=== PATIENT | male | born 1945 | race Caucasian/White ===

== ENCOUNTER 2024-03-24 07:20 | Day surgery (SDC) | payer MEDICARE ==
[~2024-03-24] VITALS: Ht 167.6 cm; Wt 124.3 kg
[~2024-03-24 07:20] MED LIST: ATOR40TA75 PO; CALTTAB6 PO; CIDA500T2 PO; ENTR1TAB PO; FARX1TAB3 PO; FURO80TA2 PO; LR 1,000 ML IV SCH; METO1TAB87 PO; MULTTAB77 PO; OMEG10002 PO; POTA99CA2 PO; TAMS1CAP17 PO; TIMO0.5S20 OU; WARF4TAB52 PO; XALA0.007 OU
[2024-03-24] MEDS: ATROPINE SULFATE 1% OPHTH SOLN 2ML BTL OS SCH (08:14)
[2024-03-24] MEDS: TETRACAINE 0.5% OPHTH SOLN 4ML OS SCH (08:15)
[2024-03-24] MEDS: PHENYLEPHRINE 2.5% OPHTH SOL 2ML OS SCH (08:15)
[2024-03-24] MEDS: FLURBIPROFEN 0.03% OPHTH SOLN 2.5 ML OS SCH (08:15)
[2024-03-24] MEDS ORDERED: fentaNYL 100 MCG/2 ML INJECTION As Ordered ONE (08:27)
[2024-03-24] MEDS ORDERED: MIDAZOLAM INJ 2MG/2ML VIAL As Ordered ONE (08:28)
[2024-03-24] MEDS: LIDOCAINE 1% SDV 5ML VIAL As Ordered ONE (09:31)
[2024-03-24] MEDS: CEFUROXIME 1MG/0.1ML INTRACAMERAL INJ As Ordered ONE (09:31)
[2024-03-24 10:06] VITALS: BP 126/64; TEMP 97.4; O2SAT 95
== END 2024-03-24 10:25 | disposition home or self-care (01) ==
LOC: M SDC 07:20
PROVIDERS: ATTEND Ophthalmology
DX: H25.12 Age-related nuclear cataract, left eye (principal); I50.9 Heart failure, unspecified; I48.20 Chronic atrial fibrillation, unspecified; I25.10 Atherosclerotic heart disease of native coronary artery without angina pectoris; E78.5 Hyperlipidemia, unspecified; Z79.899 Other long term (current) drug therapy; Z79.01 Long term (current) use of anticoagulants; Z95.1 Presence of aortocoronary bypass graft; Z85.46 Personal history of malignant neoplasm of prostate; Z87.891 Personal history of nicotine dependence; E66.9 Obesity, unspecified
CPT/HCPCS: 66984; J0697; J2250; J3010; V2632